=== PATIENT | female | born 1945 ===

== ENCOUNTER 2019-06-27 13:09 | Inpatient (IN) ==
[2019-06-27] MEDS ORDERED: INFLUENZA VIRUS VACCINE 0.5 ML SYRINGE IM ONE (17:41)
[2019-06-27] MEDS ORDERED: GLUCAGON 1 MG VIAL IM PRN (17:43)
[2019-06-27] MEDS ORDERED: DEXTROSE 50% 25 GM/50 ML VIAL IV PRN (17:43)
[2019-06-27] MEDS ORDERED: ONDANSETRON 4 MG/2 ML VIAL IV PRN (18:33)
[2019-06-27] MEDS ORDERED: DOCUSATE SODIUM 100 MG CAPSULE PO PRN (18:33)
[2019-06-27] MEDS ORDERED: ACETAMINOPHEN 325 MG TABLET PO PRN (18:33)
[2019-06-27] MEDS ORDERED: ZALEPLON 5 MG CAPSULE PO PRN (18:33)
[2019-06-27] MEDS ORDERED: cloNIDine 0.1 MG TABLET PO PRN (19:07)
[2019-06-27 19:15] LABS: Basophils % 0.6 % (0.0-0.8); Eosinophils # 0.2 10*3/uL (0.0-0.87); Eosinophils % 4.5 % (0.00-10.9); Hematocrit 36.4 VOL% (35.7-47.0); Hemoglobin 12.1 GM/DL (12.0-16.0); Immature Granulocytes % 0.4 %; Immature Granulocytes Absolute 0.02 #; Lymphocytes # 1.2 10*3/uL (1.4-4.0); Lymphocytes % 26.2 % (21.3-54.2); Mean Corpuscular HGB Conc 33.2 GM/DL (32-36); Mean Corpuscular Volume 93.6 FL (87-102); Mean Platelet Volume 9.8 FL (9.6-12.0); Monocytes % 10.6 % (1.7-12.7); Neutrophils % 57.7 % (38.7-73.9); Platelet Count 309 T/CUMM (130-400); Red Blood Count 3.89 MC/CUMM (3.8-5.5); Red Cell Distribution Width 12.3 % (9.3-17.3); White Blood Count 4.7 T/CUMM (4-12)
[2019-06-27 19:30] LABS: Calcium 8.8 MG/DL (8.5-10.1); Osmolality,Calculated 282.8 MOS/KG (273-304)
[2019-06-27] MEDS: SODIUM CHLORIDE 0.45% 1,000 ML IV SCH (21:46)
[2019-06-27] MEDS: ENOXAPARIN 40 MG/0.4 ML SYRINGE SUBCUT SCH (21:50)
[2019-06-27] MEDS: PIPERACILLIN/TAZOBACTAM 3,375 MG in SODIUM CHLORIDE 0.9% 100 ML IV SCH (21:50)
[2019-06-27] MEDS: INSULIN REGULAR 100 UNIT/ML SUBCUT SCH (21:52)
[2019-06-28] MEDS ORDERED: VANCOMYCIN INJ 1,000 MG in SODIUM CHLORIDE 0.9% 250 ML IV SCH
[2019-06-28 05:01] LABS: Basophils % 0.6 % (0.0-0.8); Eosinophils # 0.3 10*3/uL (0.0-0.87); Hematocrit 31.7 VOL% (35.7-47.0); Hemoglobin 10.8 GM/DL (12.0-16.0); Immature Granulocytes % 0.5 %; Immature Granulocytes Absolute 0.03 #; Lymphocytes # 1.7 10*3/uL (1.4-4.0); Lymphocytes % 27.1 % (21.3-54.2); Mean Corpuscular HGB Conc 34.1 GM/DL (32-36); Mean Platelet Volume 10.3 FL (9.6-12.0); Monocytes % 11.3 % (1.7-12.7); Neutrophils % 56.5 % (38.7-73.9); Platelet Count 303 T/CUMM (130-400); Red Blood Count 3.41 MC/CUMM (3.8-5.5); Red Cell Distribution Width 12.3 % (9.3-17.3); White Blood Count 6.2 T/CUMM (4-12)
[2019-06-28 05:17] LABS: Calcium 8.5 MG/DL (8.5-10.1); Osmolality,Calculated 283.7 MOS/KG (273-304)
[2019-06-28] MEDS: PIPERACILLIN/TAZOBACTAM 3,375 MG in SODIUM CHLORIDE 0.9% 100 ML IV SCH (06:06)
[2019-06-28] MEDS: PANTOPRAZOLE 40 MG TABLET PO SCH (08:24)
[2019-06-28] MEDS: amLODIPine 5 MG TABLET PO SCH (08:24)
[2019-06-28] MEDS: INSULIN REGULAR 100 UNIT/ML SUBCUT SCH ×4 (08:24→21:02)
[2019-06-28] MEDS: NICOTINE 14 MG/24 HR PATCH TRANSDERM SCH (08:25)
[2019-06-28] MEDS: SODIUM CHLORIDE 0.45% 1,000 ML IV SCH ×2 (11:00→19:43)
[2019-06-28] MEDS ORDERED: SKIN HEALING OINT (AQUAPHOR) 50 GM TUBE TOP SCH (11:30)
[2019-06-28] MEDS: CLINDAMYCIN INJ 600 MG in PREMIX 1 EACH IV SCH ×2 (12:34→17:52)
[2019-06-28 13:54] LABS: Apearance,Urine CLEAR (Clear); Bacteria,Urine Occasional /HPF (Few); Bilirubin,Urine Negative (Negative); Blood, Urine Negative (Negative); Glucose,Urine (UA) >=500 mg/dL (Negative); Ketones,Urine Negative (Negative); Nitrite,Urine Negative (Negative); Protein,Urine 30 MG/DL; RBC,Urine 2 /HPF (0-4); Squamous Epithelial Cell,Urine Occasional /HPF (0-10); Urine Color Amber (Yellow); Urine Specific Gravity 1.021 (1.001-1.035); WBC,Urine 2 /HPF (0-6)
[2019-06-28 14:39] LABS: Hepatitis B Core IgM Quant 0.08 Index; Hepatitis B Surface Ag Quant < 0.10 Index; Hepatitis B Surface Ag Result Negative (Negative); Hepatitis C Virus Ab Quant < 0.02 Index; Hepatitis C Virus Ab Result Negative (Negative)
[2019-06-28 14:57] LABS: Alanine Aminotransferase 11 U/L (13-56); Albumin 2.5 G/DL (3.4-5.0); Alkaline Phosphatase 93 U/L (45-117); Aspartate Amino Transferase 15 U/L (0-37); Blood Urea Nitrogen 21 MG/DL (7-18); Calcium 8.6 MG/DL (8.5-10.1); Estimated Glom Filtration Rate 39 ML/MIN; Glucose 351 MG/DL (74-106); Osmolality,Calculated 291.7 MOS/KG (273-304); Rheumatoid Factor < 15 IU/ML (<15); Total Protein 6.4 G/DL (6.4-8.3)
[2019-06-28] MEDS: INSULIN GLARGINE 100 UNIT/ML SUBCUT SCH (17:50)
[2019-06-28] MEDS: ENOXAPARIN 40 MG/0.4 ML SYRINGE SUBCUT SCH (21:03)
[2019-06-29] MEDS: CLINDAMYCIN INJ 600 MG in PREMIX 1 EACH IV SCH ×2 (01:09→09:18)
[2019-06-29 01:55] LABS: Apearance,Urine CLEAR (Clear); Bacteria,Urine Occasional /HPF (Few); Bilirubin,Urine Negative (Negative); Blood, Urine Negative (Negative); Glucose,Urine (UA) 50 mg/dL (Negative); Hyaline Casts,Urine 5 /LPF (0-3); Ketones,Urine Negative (Negative); Mucus,Urine Occasional /LPF (Occasional); Nitrite,Urine Negative (Negative); Protein,Urine 30 MG/DL; RBC,Urine 5 /HPF (0-4); Renal Epithelial Cells,Urine Occasional /HPF (<1); Squamous Epithelial Cell,Urine Occasional /HPF (0-10); Urine Color Amber (Yellow); Urine Specific Gravity 1.024 (1.001-1.035); WBC,Urine 13 /HPF (0-6)
[2019-06-29] MEDS: SODIUM CHLORIDE 0.45% 1,000 ML IV SCH ×2 (03:00→04:00)
[2019-06-29 06:04] LABS: Total Protein (Chem) 6.5 G/DL (6.4-8.3)
[2019-06-29 06:11] LABS: Albumin 2.3 G/DL (3.4-5.0); Bilirubin,Total 0.7 MG/DL (0.2-1.0); Calcium 7.9 MG/DL (8.5-10.1); Osmolality,Calculated 280.8 MOS/KG (273-304); Total Protein 5.8 G/DL (6.4-8.3)
[2019-06-29 07:03] LABS: Basophils % 0.7 % (0.0-0.8); Eosinophils # 0.2 10*3/uL (0.0-0.87); Eosinophils % 3.9 % (0.00-10.9); Hematocrit 28.4 VOL% (35.7-47.0); Hemoglobin 9.4 GM/DL (12.0-16.0); Immature Granulocytes % 0.5 %; Immature Granulocytes Absolute 0.03 #; Lymphocytes # 1.5 10*3/uL (1.4-4.0); Lymphocytes % 25.2 % (21.3-54.2); Mean Corpuscular HGB Conc 33.1 GM/DL (32-36); Mean Platelet Volume 10.4 FL (9.6-12.0); Neutrophils % 58.7 % (38.7-73.9); Platelet Count 271 T/CUMM (130-400); Red Blood Count 3.02 MC/CUMM (3.8-5.5); Red Cell Distribution Width 12.3 % (9.3-17.3); White Blood Count 5.9 T/CUMM (4-12)
[2019-06-29 07:34] LABS: Albumin (SPE) Rel % 52.3 %; Alpha 1 (SPE) Rel % 3.9 %; Alpha 2 (SPE) Rel % 11.4 %; Beta (SPE) Rel % 10.6 %; Gamma (SPE) Rel % 21.8 %
[2019-06-29 07:38] LABS: Albumin (SPE) 3.4 G/DL (3.2-5.3); Alpha 1 (SPE) 0.3 G/DL (0.1-0.4); Alpha 2 (SPE) 0.7 G/DL (0.4-1.0); Beta (SPE) 0.7 G/DL (0.5-1.1); Gamma (SPE) 1.4 G/DL (0.7-1.7)
[2019-06-29] MEDS: INSULIN GLARGINE 100 UNIT/ML SUBCUT SCH (09:19)
[2019-06-29] MEDS: INSULIN REGULAR 100 UNIT/ML SUBCUT SCH (09:19)
[2019-06-29] MEDS: amLODIPine 5 MG TABLET PO SCH (09:19)
[2019-06-29] MEDS: NICOTINE 14 MG/24 HR PATCH TRANSDERM SCH (09:19)
[2019-06-29] MEDS: PANTOPRAZOLE 40 MG TABLET PO SCH (09:20)
[2019-06-29 10:46] LABS: HIV Antigen/Antibody Result Nonreactive (Nonreactive)
[2019-06-29 11:54] VITALS: BP 124/64
[2019-06-30 14:36] LABS: Myeloperoxidase Antibody < 0.2 U
== END 2019-06-29 16:06 | disposition home or self-care (01) | DRG 607 ==
LOC: N.3E
PROVIDERS: ADMIT Internal Medicine; ATTEND Internal Medicine

== ENCOUNTER 2019-07-17 10:54 | Inpatient (IN) ==
[2019-07-17] MEDS ORDERED: SODIUM CHLORIDE 0.9% 500 ML IV STA (11:14)
[2019-07-17] MEDS ORDERED: VANCOMYCIN INJ 1,000 MG in SODIUM CHLORIDE 0.9% 250 ML IV STA (11:16)
[2019-07-17 11:33] LABS: Basophils % 0.5 % (0.0-0.8); Eosinophils # 0.2 10*3/uL (0.0-0.87); Eosinophils % 3.4 % (0.00-10.9); Hematocrit 32.9 VOL% (35.7-47.0); Hemoglobin 11.4 GM/DL (12.0-16.0); Immature Granulocytes % 0.7 %; Immature Granulocytes Absolute 0.04 #; Lymphocytes # 1.1 10*3/uL (1.4-4.0); Lymphocytes % 19.6 % (21.3-54.2); Mean Corpuscular HGB Conc 34.7 GM/DL (32-36); Mean Corpuscular Volume 90.9 FL (87-102); Mean Platelet Volume 10.1 FL (9.6-12.0); Monocytes % 9.8 % (1.7-12.7); Platelet Count 252 T/CUMM (130-400); Red Blood Count 3.62 MC/CUMM (3.8-5.5); Red Cell Distribution Width 12.6 % (9.3-17.3); White Blood Count 5.5 T/CUMM (4-12)
[2019-07-17 11:51] LABS: Albumin 2.8 G/DL (3.4-5.0); Bilirubin,Total 0.8 MG/DL (0.2-1.0); Calcium 8.5 MG/DL (8.5-10.1); Total Protein 7.4 G/DL (6.4-8.3)
[2019-07-17 12:23] LABS: Apearance,Urine CLEAR (Clear); Bacteria,Urine Few /HPF (Few); Bilirubin,Urine Negative (Negative); Blood, Urine Small mg/dL (Negative); Glucose,Urine (UA) >=500 mg/dL (Negative); Ketones,Urine Negative (Negative); Nitrite,Urine Positive (Negative); Protein,Urine 30 MG/DL; RBC,Urine <1 /HPF (0-4); Squamous Epithelial Cell,Urine Occasional /HPF (0-10); Urine Color Yellow (Yellow); Urine Specific Gravity 1.006 (1.001-1.035); Urine Urobilinogen < 2.0 EU/DL (0.2-1.0); WBC,Urine 4 /HPF (0-6)
[2019-07-17] MEDS ORDERED: ACETAMINOPHEN 325 MG TABLET PO PRN (13:59)
[2019-07-17] MEDS ORDERED: ONDANSETRON 4 MG/2 ML VIAL IV PRN (13:59)
[2019-07-17] MEDS ORDERED: NICOTINE 21 MG/24 HR PATCH TRANSDERM PRN (13:59)
[2019-07-17] MEDS ORDERED: BISACODYL 5 MG TABLET PO PRN (13:59)
[2019-07-17] MEDS ORDERED: MORPHINE 4 MG/1 ML VIAL IV PRN (13:59)
[2019-07-17] MEDS ORDERED: DEXTROSE 50% 25 GM/50 ML VIAL IV PRN (14:04)
[2019-07-17] MEDS ORDERED: GLUCAGON 1 MG VIAL IM PRN (14:04)
[2019-07-17] MEDS ORDERED: LORazepam 2 MG/1 ML VIAL IV PRN (14:04)
[2019-07-17] MEDS: MULTIVITAMIN (BEROCCA) TABLET PO SCH (17:40)
[2019-07-17] MEDS: amLODIPine 5 MG TABLET PO SCH (17:41)
[2019-07-17] MEDS: FOLIC ACID 0.4 MG TABLET PO SCH (17:41)
[2019-07-17] MEDS: THIAMINE 100 MG TABLET PO SCH (17:41)
[2019-07-17] MEDS: SODIUM CHLORIDE 0.9% 1,000 ML IV SCH (17:54)
[2019-07-17] MEDS: PIPERACILLIN/TAZOBACTAM 3,375 MG in SODIUM CHLORIDE 0.9% 100 ML IV SCH (18:03)
[2019-07-17] MEDS: INSULIN REGULAR 100 UNIT/ML SUBCUT SCH ×2 (18:03→21:54)
[2019-07-17] MEDS: INSULIN GLARGINE 100 UNIT/ML SUBCUT SCH (21:54)
[2019-07-18] MEDS: PIPERACILLIN/TAZOBACTAM 3,375 MG in SODIUM CHLORIDE 0.9% 100 ML IV SCH ×3 (00:22→16:54)
[2019-07-18] MEDS: SODIUM CHLORIDE 0.9% 1,000 ML IV SCH (05:16)
[2019-07-18] MEDS: PANTOPRAZOLE 40 MG TABLET PO SCH (09:50)
[2019-07-18] MEDS: MULTIVITAMIN (BEROCCA) TABLET PO SCH (09:50)
[2019-07-18] MEDS: amLODIPine 5 MG TABLET PO SCH (09:50)
[2019-07-18] MEDS: FOLIC ACID 0.4 MG TABLET PO SCH (09:50)
[2019-07-18] MEDS: THIAMINE 100 MG TABLET PO SCH (09:50)
[2019-07-18] MEDS: INSULIN REGULAR 100 UNIT/ML SUBCUT SCH ×4 (09:57→21:25)
[2019-07-18] MEDS ORDERED: TUBERCULIN SKIN TEST 0.1 ML SYRINGE INTRADERM ONE (10:49)
[2019-07-18] MEDS: ENOXAPARIN 40 MG/0.4 ML SYRINGE SUBCUT SCH (12:38)
[2019-07-18] MEDS: VANCOMYCIN INJ 1,250 MG in SODIUM CHLORIDE 0.9% 250 ML IV SCH (14:45)
[2019-07-18] MEDS ORDERED: CHLORHEXIDINE 4% SOLN 118 ML BOTTLE TOP ONE (15:20)
[2019-07-18] MEDS ORDERED: SKIN HEALING OINT (AQUAPHOR) 50 GM TUBE TOP PRN (15:49)
[2019-07-18] MEDS: SILVER SULFADIAZINE 1% CREAM 25 GM TUBE TOP SCH (16:56)
[2019-07-18] MEDS: INSULIN GLARGINE 100 UNIT/ML SUBCUT SCH (21:24)
[2019-07-19] MEDS: SODIUM CHLORIDE 0.9% 1,000 ML IV SCH (00:43)
[2019-07-19] MEDS: PIPERACILLIN/TAZOBACTAM 3,375 MG in SODIUM CHLORIDE 0.9% 100 ML IV SCH ×2 (00:44→09:15)
[2019-07-19] MEDS: PANTOPRAZOLE 40 MG TABLET PO SCH (09:14)
[2019-07-19] MEDS: INSULIN REGULAR 100 UNIT/ML SUBCUT SCH ×4 (09:14→20:51)
[2019-07-19] MEDS: amLODIPine 5 MG TABLET PO SCH (09:15)
[2019-07-19] MEDS: FOLIC ACID 0.4 MG TABLET PO SCH (09:15)
[2019-07-19] MEDS: MULTIVITAMIN (BEROCCA) TABLET PO SCH (09:15)
[2019-07-19] MEDS: THIAMINE 100 MG TABLET PO SCH (09:15)
[2019-07-19] MEDS: ENOXAPARIN 40 MG/0.4 ML SYRINGE SUBCUT SCH (12:28)
[2019-07-19] MEDS: SILVER SULFADIAZINE 1% CREAM 25 GM TUBE TOP SCH (12:29)
[2019-07-19] MEDS: VANCOMYCIN INJ 1,250 MG in SODIUM CHLORIDE 0.9% 250 ML IV SCH (14:27)
[2019-07-19] MEDS: CIPROFLOXACIN 500 MG TABLET PO SCH (20:51)
[2019-07-19] MEDS ORDERED: INSULIN GLARGINE 100 UNIT/ML SUBCUT SCH (21:00)
[2019-07-20 07:33] LABS: Calcium 8.2 MG/DL (8.5-10.1)
[2019-07-20 07:59] VITALS: BP 145/61
[2019-07-20 09:10] LABS: Basophils % 0.4 % (0.0-0.8); Eosinophils # 0.4 10*3/uL (0.0-0.87); Eosinophils % 7.2 % (0.00-10.9); Hematocrit 28.8 VOL% (35.7-47.0); Hemoglobin 9.5 GM/DL (12.0-16.0); Immature Granulocytes % 0.8 %; Immature Granulocytes Absolute 0.04 #; Lymphocytes # 1.1 10*3/uL (1.4-4.0); Lymphocytes % 20.7 % (21.3-54.2); Mean Corpuscular Volume 95.4 FL (87-102); Mean Platelet Volume 10.5 FL (9.6-12.0); Monocytes % 12.7 % (1.7-12.7); Neutrophils % 58.2 % (38.7-73.9); Platelet Count 233 T/CUMM (130-400); Red Blood Count 3.02 MC/CUMM (3.8-5.5); Red Cell Distribution Width 13.2 % (9.3-17.3); White Blood Count 5.3 T/CUMM (4-12)
[2019-07-20] MEDS: INSULIN REGULAR 100 UNIT/ML SUBCUT SCH (09:29)
[2019-07-20] MEDS: amLODIPine 5 MG TABLET PO SCH (09:30)
[2019-07-20] MEDS: MULTIVITAMIN (BEROCCA) TABLET PO SCH (09:30)
[2019-07-20] MEDS: CIPROFLOXACIN 500 MG TABLET PO SCH (09:30)
[2019-07-20] MEDS: THIAMINE 100 MG TABLET PO SCH (09:30)
[2019-07-20] MEDS: PANTOPRAZOLE 40 MG TABLET PO SCH (09:30)
[2019-07-20] MEDS: FOLIC ACID 0.4 MG TABLET PO SCH (09:30)
[2019-07-20] MEDS: SILVER SULFADIAZINE 1% CREAM 25 GM TUBE TOP SCH (09:31)
[2019-07-20] MEDS: ENOXAPARIN 40 MG/0.4 ML SYRINGE SUBCUT SCH (11:33)
== END 2019-07-20 13:15 | DRG 638 ==
LOC: EDBD → EDUNIT# → N.ED 10:54 → N.EDINP 13:59 → N.5E 16:09
PROVIDERS: ADMIT Internal Medicine; ATTEND Internal Medicine

== ENCOUNTER 2021-01-30 13:39 | Inpatient (IN) ==
[2021-01-30] MEDS ORDERED: ONDANSETRON 4 MG/2 ML VIAL IV PRN (17:29)
[2021-01-30] MEDS ORDERED: DEXTROSE 50% 25 GM/50 ML VIAL IV PRN (17:29)
[2021-01-30] MEDS ORDERED: ACETAMINOPHEN 325 MG TABLET PO PRN (17:29)
[2021-01-30] MEDS ORDERED: MORPHINE 4 MG/1 ML VIAL IV PRN (17:29)
[2021-01-30] MEDS ORDERED: hydrALAZINE 20 MG/1 ML VIAL IV PRN (17:29)
[2021-01-30] MEDS ORDERED: GLUCAGON 1 MG VIAL IM PRN (17:29)
[2021-01-30] MEDS ORDERED: PNEUMOCOCCAL VACCINE (13 VALENT) 0.5 ML SYRINGE IM ONE (17:34)
[2021-01-30] MEDS: FUROSEMIDE 40 MG/4 ML VIAL IV SCH (18:03)
[2021-01-30 18:27] LABS: Risk Ratio 2.38; Thyroid Stimulating Hormone 30.7 uIU/ml (0.358-3.74)
[2021-01-30 20:15] LABS: Hepatitis B Core IgM Quant 0.08 Index; Hepatitis B Surface Ag Quant < 0.10 Index; Hepatitis B Surface Ag Result Non-Reactive (NonReactive); Hepatitis C Virus Ab Quant 0.33 Index; Hepatitis C Virus Ab Result Non-Reactive (NonReactive)
[2021-01-30] MEDS: LOSARTAN 25 MG TABLET PO SCH (21:16)
[2021-01-30] MEDS: carvediloL 6.25 MG TABLET PO SCH (21:16)
[2021-01-30] MEDS: ATORVASTATIN 20 MG TABLET PO SCH (21:16)
[2021-01-30] MEDS: INSULIN LISPRO 100 UNIT/ML SUBCUT SCH (21:16)
[2021-01-30] MEDS: ENOXAPARIN 40 MG/0.4 ML SYRINGE SUBCUT SCH (21:20)
[2021-01-31 05:12] LABS: Basophils # 0.1 10*3/uL (0.0-0.2); Basophils % 0.8 % (0.0-0.8); Eosinophils # 0.2 10*3/uL (0.0-0.87); Eosinophils % 2.9 % (0.00-10.9); Hematocrit 30.1 VOL% (35.7-47.0); Hemoglobin 9.2 GM/DL (12.0-16.0); Immature Granulocytes % 0.3 %; Immature Granulocytes Absolute 0.02 #; Lymphocytes % 15.9 % (21.3-54.2); Mean Corpuscular HGB Conc 30.6 GM/DL (32-36); Mean Corpuscular Volume 101.3 FL (87-102); Mean Platelet Volume 10.6 FL (9.6-12.0); Monocytes % 8.9 % (1.7-12.7); Neutrophils % 71.2 % (38.7-73.9); Platelet Count 196 T/CUMM (130-400); Red Blood Count 2.97 MC/CUMM (3.8-5.5); Red Cell Distribution Width 15.5 % (9.3-17.3); White Blood Count 6.3 T/CUMM (4-12)
[2021-01-31 05:59] LABS: Albumin 1.5 G/DL (3.4-5.0); Bilirubin,Total 1.1 MG/DL (0.2-1.0); Osmolality,Calculated 295.7 MOS/KG (273-304); Potassium 4.5 MMOL/L (3.5-5.1); Total Protein 5.6 G/DL (6.4-8.2)
[2021-01-31] MEDS: INSULIN LISPRO 100 UNIT/ML SUBCUT SCH ×4 (08:03→20:27)
[2021-01-31] MEDS: ASPIRIN CHEW 81 MG TABLET PO SCH (08:22)
[2021-01-31] MEDS: FUROSEMIDE 40 MG/4 ML VIAL IV SCH ×2 (08:22→16:21)
[2021-01-31] MEDS: LEVOTHYROXINE 75 MCG TABLET PO SCH (08:22)
[2021-01-31] MEDS: SPIRONOLACTONE 25 MG TABLET PO SCH (08:22)
[2021-01-31] MEDS: LOSARTAN 25 MG TABLET PO SCH (08:22)
[2021-01-31] MEDS: carvediloL 6.25 MG TABLET PO SCH ×2 (08:22→20:26)
[2021-01-31] MEDS: cefTRIAXone 1,000 MG in SODIUM CHLORIDE 0.9% 100 ML IV SCH (09:16)
[2021-01-31] MEDS ORDERED: SKIN HEALING OINT (AQUAPHOR) 50 GM TUBE TOP PRN (11:32)
[2021-01-31] MEDS: SILDENAFIL 20 MG TABLET PO SCH ×2 (16:20→20:27)
[2021-01-31] MEDS: ENOXAPARIN 40 MG/0.4 ML SYRINGE SUBCUT SCH (20:26)
[2021-01-31] MEDS: ATORVASTATIN 20 MG TABLET PO SCH (20:26)
[2021-02-01] MEDS: LEVOTHYROXINE 75 MCG TABLET PO SCH (06:13)
[2021-02-01 06:25] LABS: Basophils % 0.6 % (0.0-0.8); Eosinophils # 0.2 10*3/uL (0.0-0.87); Eosinophils % 2.3 % (0.00-10.9); Hematocrit 29.1 VOL% (35.7-47.0); Hemoglobin 8.8 GM/DL (12.0-16.0); Immature Granulocytes % 0.3 %; Immature Granulocytes Absolute 0.02 #; Lymphocytes % 15.6 % (21.3-54.2); Mean Corpuscular HGB Conc 30.2 GM/DL (32-36); Mean Corpuscular Volume 102.5 FL (87-102); Monocytes % 8.4 % (1.7-12.7); Neutrophils % 72.8 % (38.7-73.9); Platelet Count 178 T/CUMM (130-400); Red Blood Count 2.84 MC/CUMM (3.8-5.5); Red Cell Distribution Width 15.2 % (9.3-17.3); White Blood Count 6.4 T/CUMM (4-12)
[2021-02-01 06:56] LABS: Alanine Aminotransferase 11 U/L (13-56); Albumin 1.5 G/DL (3.4-5.0); Alkaline Phosphatase 190 U/L (45-117); Aspartate Amino Transferase 19 U/L (0-37); Bilirubin,Total < 0.39 MG/DL (0.2-1.0); Blood Urea Nitrogen 35 MG/DL (7-18); Calcium 7.8 MG/DL (8.5-10.1); Carbon Dioxide 30 MMOL/L (21-32); Estimated Glom Filtration Rate 41 ML/MIN; Glucose 138 MG/DL (74-106); Osmolality,Calculated 290.3 MOS/KG (273-304); Potassium 4.9 MMOL/L (3.5-5.1); Sodium 141 MMOL/L (136-145); Total Protein 5.8 G/DL (6.4-8.2)
[2021-02-01] MEDS: INSULIN LISPRO 100 UNIT/ML SUBCUT SCH ×4 (07:31→20:58)
[2021-02-01] MEDS: SPIRONOLACTONE 25 MG TABLET PO SCH (10:40)
[2021-02-01] MEDS: carvediloL 6.25 MG TABLET PO SCH ×2 (10:41→20:58)
[2021-02-01] MEDS: SILDENAFIL 20 MG TABLET PO SCH ×3 (10:41→20:58)
[2021-02-01] MEDS: FUROSEMIDE 40 MG/4 ML VIAL IV SCH ×2 (10:41→15:20)
[2021-02-01] MEDS: cefTRIAXone 1,000 MG in SODIUM CHLORIDE 0.9% 100 ML IV SCH (10:41)
[2021-02-01] MEDS: ASPIRIN CHEW 81 MG TABLET PO SCH (10:41)
[2021-02-01] MEDS: ENOXAPARIN 40 MG/0.4 ML SYRINGE SUBCUT SCH (20:57)
[2021-02-01] MEDS: ATORVASTATIN 20 MG TABLET PO SCH (20:58)
[2021-02-01] MEDS: SACUBITRIL/VALSARTAN 49-51 MG TABLET PO SCH (21:01)
[2021-02-02 04:16] LABS: Basophils % 0.8 % (0.0-0.8); Eosinophils # 0.2 10*3/uL (0.0-0.87); Eosinophils % 2.8 % (0.00-10.9); Hematocrit 31.8 VOL% (35.7-47.0); Hemoglobin 9.5 GM/DL (12.0-16.0); Immature Granulocytes % 0.4 %; Immature Granulocytes Absolute 0.02 #; Lymphocytes # 1.1 10*3/uL (1.4-4.0); Lymphocytes % 19.9 % (21.3-54.2); Mean Corpuscular HGB Conc 29.9 GM/DL (32-36); Mean Corpuscular Volume 102.9 FL (87-102); Mean Platelet Volume 10.9 FL (9.6-12.0); Monocytes % 11.7 % (1.7-12.7); Neutrophils % 64.4 % (38.7-73.9); Platelet Count 170 T/CUMM (130-400); Red Blood Count 3.09 MC/CUMM (3.8-5.5); Red Cell Distribution Width 15.1 % (9.3-17.3); White Blood Count 5.3 T/CUMM (4-12)
[2021-02-02 04:41] LABS: Alanine Aminotransferase 14 U/L (13-56); Albumin 1.6 G/DL (3.4-5.0); Alkaline Phosphatase 195 U/L (45-117); Aspartate Amino Transferase 20 U/L (0-37); Bilirubin,Total < 0.39 MG/DL (0.2-1.0); Blood Urea Nitrogen 40 MG/DL (7-18); Calcium 7.6 MG/DL (8.5-10.1); Carbon Dioxide 26 MMOL/L (21-32); Estimated Glom Filtration Rate 28 ML/MIN; Glucose 85 MG/DL (74-106); Osmolality,Calculated 283.7 MOS/KG (273-304); Potassium 5.1 MMOL/L (3.5-5.1); Sodium 138 MMOL/L (136-145)
[2021-02-02] MEDS ORDERED: LACTULOSE 20 GM/30 ML UDCUP PO ONE (04:59)
[2021-02-02 05:48] LABS: Anisocytosis 1+; Platelet Estimate Normal
[2021-02-02 05:49] LABS: Macrocytosis 1+
[2021-02-02] MEDS: LEVOTHYROXINE 75 MCG TABLET PO SCH (06:12)
[2021-02-02] MEDS: INSULIN LISPRO 100 UNIT/ML SUBCUT SCH ×4 (07:39→20:59)
[2021-02-02] MEDS: carvediloL 6.25 MG TABLET PO SCH ×2 (08:58→21:02)
[2021-02-02] MEDS: FUROSEMIDE 40 MG/4 ML VIAL IV SCH (09:30)
[2021-02-02] MEDS: ASPIRIN CHEW 81 MG TABLET PO SCH (09:51)
[2021-02-02] MEDS: SILDENAFIL 20 MG TABLET PO SCH ×3 (09:51→21:02)
[2021-02-02] MEDS: SACUBITRIL/VALSARTAN 49-51 MG TABLET PO SCH ×2 (09:52→21:00)
[2021-02-02] MEDS: SPIRONOLACTONE 25 MG TABLET PO SCH (09:52)
[2021-02-02] MEDS: cefTRIAXone 1,000 MG in SODIUM CHLORIDE 0.9% 100 ML IV SCH (09:54)
[2021-02-02] MEDS ORDERED: FUROSEMIDE 40 MG/4 ML VIAL IV ONE (12:53)
[2021-02-02] MEDS ORDERED: FUROSEMIDE 40 MG/4 ML VIAL ONE (12:53)
[2021-02-02 13:03] LABS: Allen Test Positive
[2021-02-02 13:04] LABS: ABG Base Excess -0.2 MMOL/L (-2.5-2.5); ABG HCO3 24.3 MMOL/L (20-26); ABG Oxygen Saturation 97.6 % (95-100); ABG TCO2 27.8 MMOL/L (23-27)
[2021-02-02 13:05] LABS: ABG PCO2 75.9 MM HG (35-48); ABG PH 7.203 (7.35-7.45)
[2021-02-02 13:41] LABS: Alanine Aminotransferase 15 U/L (13-56); Albumin 1.6 G/DL (3.4-5.0); Alkaline Phosphatase 263 U/L (45-117); Aspartate Amino Transferase 37 U/L (0-37); Bilirubin,Total < 0.39 MG/DL (0.2-1.0); Blood Urea Nitrogen 42 MG/DL (7-18); Calcium 8.6 MG/DL (8.5-10.1); Carbon Dioxide 26 MMOL/L (21-32); Estimated Glom Filtration Rate 25 ML/MIN; Glucose 159 MG/DL (74-106); Osmolality,Calculated 286.8 MOS/KG (273-304); Potassium 5.3 MMOL/L (3.5-5.1); Sodium 137 MMOL/L (136-145); Total Protein 6.6 G/DL (6.4-8.2)
[2021-02-02 13:53] LABS: Basophils # 0.1 10*3/uL (0.0-0.2); Basophils % 0.7 % (0.0-0.8); Eosinophils # 0.2 10*3/uL (0.0-0.87); Eosinophils % 2.2 % (0.00-10.9); Hematocrit 34.7 VOL% (35.7-47.0); Immature Granulocytes % 2.2 %; Immature Granulocytes Absolute 0.15 #; Lymphocytes # 1.6 10*3/uL (1.4-4.0); Lymphocytes % 23.8 % (21.3-54.2); Mean Corpuscular Volume 103.6 FL (87-102); Mean Platelet Volume 11.3 FL (9.6-12.0); Monocytes % 7.4 % (1.7-12.7); Neutrophils % 63.7 % (38.7-73.9); Platelet Count 185 T/CUMM (130-400); Red Blood Count 3.35 MC/CUMM (3.8-5.5); Red Cell Distribution Width 15.1 % (9.3-17.3); White Blood Count 6.9 T/CUMM (4-12)
[2021-02-02 13:55] LABS: Hemoglobin 10.4 GM/DL (12.0-16.0)
[2021-02-02] MEDS ORDERED: SODIUM POLYSTYRENE SULFATE 15 GM/60 ML BOTTLE PO STA (14:38)
[2021-02-02 14:39] LABS: ABG Base Excess 0.6 MMOL/L (-2.5-2.5); ABG Oxygen Saturation 98.7 % (95-100); ABG PCO2 61.7 MM HG (35-48); ABG PH 7.277 (7.35-7.45); ABG TCO2 26.4 MMOL/L (23-27); Allen Test Positive; Pt O2 Delivery Device BIPAP
[2021-02-02] MEDS: LACTULOSE 20 GM/30 ML UDCUP PO SCH ×2 (15:49→20:59)
[2021-02-02] MEDS: FUROSEMIDE 40 MG TABLET PO SCH (15:49)
[2021-02-02] MEDS: ATORVASTATIN 20 MG TABLET PO SCH (21:01)
[2021-02-02] MEDS: ENOXAPARIN 40 MG/0.4 ML SYRINGE SUBCUT SCH (21:04)
[2021-02-03] MEDS: LEVOTHYROXINE 75 MCG TABLET PO SCH (05:35)
[2021-02-03] MEDS: INSULIN LISPRO 100 UNIT/ML SUBCUT SCH ×4 (08:10→20:37)
[2021-02-03] MEDS: FUROSEMIDE 40 MG TABLET PO SCH ×2 (08:19→15:43)
[2021-02-03] MEDS: ASPIRIN CHEW 81 MG TABLET PO SCH (08:20)
[2021-02-03] MEDS: LACTULOSE 20 GM/30 ML UDCUP PO SCH ×2 (08:20→20:36)
[2021-02-03] MEDS: SILDENAFIL 20 MG TABLET PO SCH ×3 (08:20→20:36)
[2021-02-03] MEDS: cefTRIAXone 1,000 MG in SODIUM CHLORIDE 0.9% 100 ML IV SCH (08:44)
[2021-02-03] MEDS: carvediloL 3.125 MG TABLET PO SCH ×2 (09:29→20:36)
[2021-02-03 11:22] LABS: Calcium 7.5 MG/DL (8.5-10.1); Osmolality,Calculated 295.3 MOS/KG (273-304); Potassium 4.4 MMOL/L (3.5-5.1)
[2021-02-03 14:08] LABS: ABG Base Excess -0.2 MMOL/L (-2.5-2.5); ABG HCO3 27.2 MMOL/L (20-26); ABG Oxygen Saturation 92.5 % (95-100); ABG PCO2 58.9 MM HG (35-48); ABG PH 7.282 (7.35-7.45); ABG PO2 71.7 MM HG (80-95); Allen Test Positive
[2021-02-03] MEDS: ATORVASTATIN 20 MG TABLET PO SCH (20:36)
[2021-02-03] MEDS: ENOXAPARIN 30 MG/0.3 ML SYRINGE SUBCUT SCH (20:36)
[2021-02-04] MEDS ORDERED: ROCURONIUM 100 MG/10 ML VIAL IV ONE (00:12)
[2021-02-04] MEDS ORDERED: ETOMIDATE 20 MG/10 ML VIAL IV ONE (00:12)
[2021-02-04] MEDS ORDERED: MIDAZOLAM 10 MG/2 ML VIAL ONE (00:17)
[2021-02-04] MEDS ORDERED: SODIUM BICARBONATE 50 MEQ/50 ML VIAL IV ONE (00:33)
[2021-02-04] MEDS ORDERED: EPINEPHrine 1 MG/10 ML SYRINGE IV ONE (00:33)
[2021-02-04 00:41] LABS: Basophils % 0.9 % (0.0-0.8); Eosinophils # 0.1 10*3/uL (0.0-0.87); Eosinophils % 1.3 % (0.00-10.9); Hematocrit 34.9 VOL% (35.7-47.0); Hemoglobin 10.7 GM/DL (12.0-16.0); Immature Granulocytes % 1.8 %; Immature Granulocytes Absolute 0.08 #; Lymphocytes # 2.1 10*3/uL (1.4-4.0); Lymphocytes % 46.6 % (21.3-54.2); Mean Corpuscular HGB Conc 30.7 GM/DL (32-36); Mean Corpuscular Volume 99.7 FL (87-102); Mean Platelet Volume 11.2 FL (9.6-12.0); Monocytes % 9.7 % (1.7-12.7); Neutrophils % 39.7 % (38.7-73.9); Platelet Count 188 T/CUMM (130-400); Red Cell Distribution Width 15.3 % (9.3-17.3); White Blood Count 4.5 T/CUMM (4-12)
[2021-02-04 00:44] LABS: Alanine Aminotransferase 14 U/L (13-56); Albumin 1.3 G/DL (3.4-5.0); Alkaline Phosphatase 193 U/L (45-117); Aspartate Amino Transferase 22 U/L (0-37); Bilirubin,Total < 0.39 MG/DL (0.2-1.0); Blood Urea Nitrogen 43 MG/DL (7-18); Calcium 7.3 MG/DL (8.5-10.1); Carbon Dioxide 30 MMOL/L (21-32); Estimated Glom Filtration Rate 23 ML/MIN; Glucose 131 MG/DL (74-106); Osmolality,Calculated 295.1 MOS/KG (273-304); Potassium 4.2 MMOL/L (3.5-5.1); Sodium 142 MMOL/L (136-145); Total Protein 5.4 G/DL (6.4-8.2)
[2021-02-04 01:01] LABS: ABG Base Excess 2.3 MMOL/L (-2.5-2.5); ABG HCO3 26.4 MMOL/L (20-26); ABG Oxygen Saturation 98.5 % (95-100); ABG PCO2 45.9 MM HG (35-48); ABG PH 7.389 (7.35-7.45); ABG TCO2 25.1 MMOL/L (23-27); Allen Test Positive; Pt O2 Delivery Device Ventilator
[2021-02-04 03:44] LABS: ABG Base Excess 1.1 MMOL/L (-2.5-2.5); ABG HCO3 23.9 MMOL/L (20-26); ABG Oxygen Saturation 97.7 % (95-100); ABG PCO2 31.5 MM HG (35-48); ABG PH 7.498 (7.35-7.45); ABG PO2 91.8 MM HG (80-95); ABG TCO2 24.9 MMOL/L (23-27); Allen Test Positive; Pt O2 Delivery Device Ventilator
[2021-02-04 05:02] LABS: Basophils % 0.4 % (0.0-0.8); Eosinophils # 0.1 10*3/uL (0.0-0.87); Eosinophils % 0.6 % (0.00-10.9); Hemoglobin 10.3 GM/DL (12.0-16.0); Immature Granulocytes % 0.6 %; Immature Granulocytes Absolute 0.06 #; Lymphocytes # 0.6 10*3/uL (1.4-4.0); Lymphocytes % 6.5 % (21.3-54.2); Mean Corpuscular HGB Conc 31.2 GM/DL (32-36); Mean Corpuscular Volume 96.8 FL (87-102); Monocytes % 7.2 % (1.7-12.7); Neutrophils % 84.7 % (38.7-73.9); Platelet Count 198 T/CUMM (130-400); Red Blood Count 3.41 MC/CUMM (3.8-5.5); Red Cell Distribution Width 14.9 % (9.3-17.3); White Blood Count 9.3 T/CUMM (4-12)
[2021-02-04 05:29] LABS: Alanine Aminotransferase 13 U/L (13-56); Albumin 1.2 G/DL (3.4-5.0); Alkaline Phosphatase 182 U/L (45-117); Aspartate Amino Transferase 30 U/L (0-37); Bilirubin,Total < 0.39 MG/DL (0.2-1.0); Blood Urea Nitrogen 46 MG/DL (7-18); Calcium 7.5 MG/DL (8.5-10.1); Carbon Dioxide 25 MMOL/L (21-32); Estimated Glom Filtration Rate 23 ML/MIN; Glucose 105 MG/DL (74-106); Osmolality,Calculated 292.3 MOS/KG (273-304); Potassium 4.1 MMOL/L (3.5-5.1); Sodium 141 MMOL/L (136-145); Total Protein 5.1 G/DL (6.4-8.2)
[2021-02-04] MEDS: INSULIN LISPRO 100 UNIT/ML SUBCUT SCH ×3 (06:23→18:32)
[2021-02-04] MEDS: LEVOTHYROXINE 75 MCG TABLET PO SCH (06:43)
[2021-02-04] MEDS ORDERED: LEVOTHYROXINE 100 MCG VIAL IV SCH (09:00)
[2021-02-04] MEDS: PANTOPRAZOLE 40 MG VIAL IV SCH (09:10)
[2021-02-04] MEDS: LACTULOSE 20 GM/30 ML UDCUP PO SCH ×2 (09:10→20:00)
[2021-02-04] MEDS: HYDROCORTISONE 100 MG VIAL IV SCH ×2 (09:10→20:00)
[2021-02-04] MEDS: FUROSEMIDE 40 MG TABLET PO SCH ×2 (09:11→16:30)
[2021-02-04] MEDS: SILDENAFIL 20 MG TABLET PO SCH ×3 (09:11→20:00)
[2021-02-04] MEDS: carvediloL 3.125 MG TABLET PO SCH ×2 (09:11→20:00)
[2021-02-04] MEDS: ASPIRIN CHEW 81 MG TABLET PO SCH (09:11)
[2021-02-04] MEDS: cefTRIAXone 1,000 MG in SODIUM CHLORIDE 0.9% 100 ML IV SCH (09:24)
[2021-02-04 11:07] LABS: ABG Base Excess 0.9 MMOL/L (-2.5-2.5); ABG HCO3 24.8 MMOL/L (20-26); ABG Oxygen Saturation 98.8 % (95-100); ABG PCO2 36.9 MM HG (35-48); ABG PH 7.445 (7.35-7.45); ABG PO2 148.3 MM HG (80-95); ABG TCO2 25.9 MMOL/L (23-27); Allen Test Positive; Pt O2 Delivery Device Ventilator
[2021-02-04] MEDS: LACTATED RINGERS 1,000 ML IV SCH (14:48)
[2021-02-04] MEDS: MIDAZOLAM 100 MG in SODIUM CHLORIDE 0.9% 80 ML IV PRN (18:54)
[2021-02-04] MEDS: ATORVASTATIN 20 MG TABLET PO SCH (20:00)
[2021-02-04] MEDS: ENOXAPARIN 30 MG/0.3 ML SYRINGE SUBCUT SCH (20:00)
[2021-02-05] MEDS: LACTATED RINGERS 1,000 ML IV SCH ×3 (02:07→18:25)
[2021-02-05] MEDS: INSULIN LISPRO 100 UNIT/ML SUBCUT SCH ×5 (02:07→23:22)
[2021-02-05 03:49] LABS: ABG Base Excess -0.7 MMOL/L (-2.5-2.5); ABG HCO3 23.8 MMOL/L (20-26); ABG Oxygen Saturation 98.8 % (95-100); ABG PCO2 39.1 MM HG (35-48); ABG PH 7.395 (7.35-7.45)
[2021-02-05 04:30] LABS: Basophils % 0.3 % (0.0-0.8); Hematocrit 28.9 VOL% (35.7-47.0); Hemoglobin 9.1 GM/DL (12.0-16.0); Immature Granulocytes % 0.4 %; Immature Granulocytes Absolute 0.04 #; Lymphocytes # 0.8 10*3/uL (1.4-4.0); Lymphocytes % 8.4 % (21.3-54.2); Mean Corpuscular HGB Conc 31.5 GM/DL (32-36); Mean Platelet Volume 11.7 FL (9.6-12.0); Monocytes % 6.7 % (1.7-12.7); Neutrophils % 84.2 % (38.7-73.9); Platelet Count 160 T/CUMM (130-400); Red Blood Count 2.98 MC/CUMM (3.8-5.5); Red Cell Distribution Width 15.3 % (9.3-17.3); White Blood Count 9.1 T/CUMM (4-12)
[2021-02-05 04:50] LABS: Bilirubin,Total 0.4 MG/DL (0.2-1.0); Calcium 6.9 MG/DL (8.5-10.1); Potassium 3.1 MMOL/L (3.5-5.1)
[2021-02-05] MEDS ORDERED: PHENYLEPHRINE DRIP 40 MG/250 ML PREMIX IV PRN (06:00)
[2021-02-05] MEDS ORDERED: DOPamine 800 MG/250 ML PREMIX IV PRN (06:39)
[2021-02-05] MEDS: carvediloL 3.125 MG TABLET PO SCH (08:05)
[2021-02-05] MEDS: cefTRIAXone 1,000 MG in SODIUM CHLORIDE 0.9% 100 ML IV SCH (08:15)
[2021-02-05] MEDS: SILDENAFIL 20 MG TABLET PO SCH ×3 (08:15→20:08)
[2021-02-05] MEDS: HYDROCORTISONE 100 MG VIAL IV SCH ×2 (08:15→20:07)
[2021-02-05] MEDS: FUROSEMIDE 40 MG TABLET PO SCH (08:15)
[2021-02-05] MEDS: ASPIRIN CHEW 81 MG TABLET PO SCH (08:15)
[2021-02-05] MEDS: PANTOPRAZOLE 40 MG VIAL IV SCH (08:15)
[2021-02-05] MEDS: LACTULOSE 20 GM/30 ML UDCUP PO SCH ×2 (08:15→20:08)
[2021-02-05] MEDS: FUROSEMIDE 40 MG/4 ML VIAL IV SCH ×2 (09:19→15:58)
[2021-02-05] MEDS: LEVOTHYROXINE 100 MCG VIAL IV SCH (09:19)
[2021-02-05] MEDS ORDERED: POTASSIUM CHLORIDE 20 MEQ/15 ML UDCUP PO ONE ×2 (10:30→12:30)
[2021-02-05] MEDS: ENOXAPARIN 30 MG/0.3 ML SYRINGE SUBCUT SCH (20:07)
[2021-02-05] MEDS: ATORVASTATIN 20 MG TABLET PO SCH (20:08)
[2021-02-06] MEDS: LACTATED RINGERS 1,000 ML IV SCH ×2 (04:26→08:31)
[2021-02-06 04:41] LABS: ABG Base Excess -0.9 MMOL/L (-2.5-2.5); ABG HCO3 23.6 MMOL/L (20-26); ABG Oxygen Saturation 97.2 % (95-100); ABG PCO2 41.1 MM HG (35-48); ABG PH 7.377 (7.35-7.45); ABG PO2 95.6 MM HG (80-95); ABG TCO2 21.6 MMOL/L (23-27); Allen Test Positive; Pt O2 Delivery Device Ventilator
[2021-02-06] MEDS: INSULIN LISPRO 100 UNIT/ML SUBCUT SCH ×4 (05:26→23:36)
[2021-02-06 06:11] LABS: Basophils % 0.1 % (0.0-0.8); Hematocrit 34.1 VOL% (35.7-47.0); Immature Granulocytes % 0.4 %; Immature Granulocytes Absolute 0.04 #; Lymphocytes # 0.6 10*3/uL (1.4-4.0); Lymphocytes % 6.7 % (21.3-54.2); Mean Corpuscular HGB Conc 32.3 GM/DL (32-36); Mean Corpuscular Volume 95.3 FL (87-102); Mean Platelet Volume 11.4 FL (9.6-12.0); Monocytes % 3.3 % (1.7-12.7); Neutrophils % 89.5 % (38.7-73.9); Platelet Count 201 T/CUMM (130-400); Red Blood Count 3.58 MC/CUMM (3.8-5.5); Red Cell Distribution Width 15.3 % (9.3-17.3); White Blood Count 9.3 T/CUMM (4-12)
[2021-02-06 06:40] VITALS: BP 110/50
[2021-02-06 06:49] LABS: Alanine Aminotransferase 13 U/L (13-56); Albumin 1.3 G/DL (3.4-5.0); Alkaline Phosphatase 159 U/L (45-117); Aspartate Amino Transferase 20 U/L (0-37); Bilirubin,Total < 0.39 MG/DL (0.2-1.0); Blood Urea Nitrogen 54 MG/DL (7-18); Calcium 7.2 MG/DL (8.5-10.1); Carbon Dioxide 23 MMOL/L (21-32); Estimated Glom Filtration Rate 19 ML/MIN; Glucose 362 MG/DL (74-106); Osmolality,Calculated 312.1 MOS/KG (273-304); Potassium 3.4 MMOL/L (3.5-5.1); Sodium 142 MMOL/L (136-145)
[2021-02-06] MEDS: LEVOTHYROXINE 100 MCG VIAL IV SCH (08:00)
[2021-02-06] MEDS: SILDENAFIL 20 MG TABLET PO SCH ×3 (08:32→20:25)
[2021-02-06] MEDS: cefTRIAXone 1,000 MG in SODIUM CHLORIDE 0.9% 100 ML IV SCH (08:32)
[2021-02-06] MEDS: ASPIRIN CHEW 81 MG TABLET PO SCH (08:32)
[2021-02-06] MEDS: FUROSEMIDE 40 MG/4 ML VIAL IV SCH ×2 (08:32→16:35)
[2021-02-06] MEDS: PANTOPRAZOLE 40 MG VIAL IV SCH (08:32)
[2021-02-06] MEDS: LACTULOSE 20 GM/30 ML UDCUP PO SCH ×2 (08:32→20:25)
[2021-02-06] MEDS: HYDROCORTISONE 100 MG VIAL IV SCH ×2 (08:33→20:24)
[2021-02-06] MEDS: ENOXAPARIN 30 MG/0.3 ML SYRINGE SUBCUT SCH (20:24)
[2021-02-06] MEDS: ATORVASTATIN 20 MG TABLET PO SCH (20:25)
[2021-02-06] MEDS ORDERED: INSULIN GLARGINE 100 UNIT/ML SUBCUT SCH (21:00)
[2021-02-07] MEDS ORDERED: EPINEPHrine 1 MG/10 ML SYRINGE ONE (00:05)
[2021-02-07] MEDS ORDERED: SODIUM BICARBONATE 50 MEQ/50 ML SYRINGE IV ONE (00:05)
[2021-02-07] MEDS: MIDAZOLAM 100 MG in SODIUM CHLORIDE 0.9% 80 ML IV PRN (02:47)
[2021-02-07 04:44] LABS: Allen Test Positive; Pt O2 Delivery Device Ventilator
[2021-02-07 04:45] LABS: ABG Base Excess -1.3 MMOL/L (-2.5-2.5); ABG HCO3 23.3 MMOL/L (20-26); ABG Oxygen Saturation 94.9 % (95-100); ABG PH 7.373 (7.35-7.45); ABG PO2 77.8 MM HG (80-95); ABG TCO2 21.4 MMOL/L (23-27)
[2021-02-07 05:15] LABS: Basophils % 0.2 % (0.0-0.8); Hemoglobin 11.3 GM/DL (12.0-16.0); Immature Granulocytes % 1.5 %; Immature Granulocytes Absolute 0.17 #; Lymphocytes # 0.7 10*3/uL (1.4-4.0); Lymphocytes % 6.2 % (21.3-54.2); Mean Corpuscular HGB Conc 33.2 GM/DL (32-36); Mean Corpuscular Volume 93.7 FL (87-102); Mean Platelet Volume 11.6 FL (9.6-12.0); Monocytes % 3.1 % (1.7-12.7); Platelet Count 212 T/CUMM (130-400); Red Blood Count 3.63 MC/CUMM (3.8-5.5); Red Cell Distribution Width 15.3 % (9.3-17.3); White Blood Count 11.4 T/CUMM (4-12)
[2021-02-07 05:43] LABS: Calcium 6.9 MG/DL (8.5-10.1); Osmolality,Calculated 308.1 MOS/KG (273-304); Potassium 3.3 MMOL/L (3.5-5.1)
[2021-02-07] MEDS: INSULIN LISPRO 100 UNIT/ML SUBCUT SCH ×3 (06:03→19:24)
[2021-02-07] MEDS ORDERED: LEVOTHYROXINE 100 MCG VIAL IV SCH (07:00)
[2021-02-07] MEDS: FUROSEMIDE 40 MG/4 ML VIAL IV SCH (10:00)
[2021-02-07] MEDS: cefTRIAXone 1,000 MG in SODIUM CHLORIDE 0.9% 100 ML IV SCH ×2 (10:30→19:25)
[2021-02-07] MEDS: ASPIRIN CHEW 81 MG TABLET PO SCH (11:06)
[2021-02-07] MEDS: LACTULOSE 20 GM/30 ML UDCUP PO SCH (11:07)
[2021-02-07] MEDS: HYDROCORTISONE 100 MG VIAL IV SCH (11:07)
[2021-02-07] MEDS: SILDENAFIL 20 MG TABLET PO SCH ×2 (11:08→17:31)
[2021-02-07] MEDS: PANTOPRAZOLE 40 MG VIAL IV SCH (11:08)
[2021-02-07] MEDS ORDERED: INSULIN GLARGINE 100 UNIT/ML SUBCUT SCH (21:00)
== END 2021-02-07 17:50 | DRG 291 ==
LOC: N.TELES 16:32 → SUATTDRO 16:32 → N.CC 02-02 12:58
PROVIDERS: ADMIT Internal Medicine; ATTEND Internal Medicine